=== PATIENT | female | born 1985 | race Caucasian/White ===

== ENCOUNTER → 2020-08-12 08:47 | Outpatient (CLI) | payer OTHER, SELFPAY ==
--- NOTE | ~2020-08-12 | MR_ITS ---
EXAMINATION: MR lumbar spine wo con DATE: 08/12/2020 09:21 INDICATION: Low back pain. Failed back surgical syndrome. TECHNIQUE: Magnetic resonance imaging (MRI) of the lumbar spine was performed without intravenous con trast. Sequences included sagittal T2-weighted FSE, sagittal STIR FSE, sagittal T1-weighted FSE, and axial T2-weighted FSE. COMPARISON: None FINDINGS: Bone alignment is normal in lumbar spine. Artifact from instrumentation from anterior fusio n procedure from the thoracic spine to L2 totally obscures those segments. The visualized portion of the lumbar spine demonstrates normal bone alignment and normal intervertebral disc heights. The dista l spinal cord is obscured. The following disc levels are specifically discussed: L2-L3: There is a central protrusion. There is no facet joint osteoarthritis. There is no neural fora carmella stenosis. There is no central canal stenosis. L3-L4: The disc is mildly bulging. There is no facet joint osteoarthritis. There is mild right neural foraminal stenosis. There is no central canal stenosis. L4-L5: The disc is mildly bulging. There is mild bilateral facet joint osteoarthritis. There is mild bilateral neural foraminal stenosis. There is no central canal stenosis. L5-S1: The disc is bulging, eccentric to the right. There is mild right and moderate left facet joint osteoarthritis. There is mild bilateral neural foraminal stenosis. There is mild central canal steno sis. IMPRESSION: 1. Mild lumbar spondylosis. 2. Anterior fusion procedure from the thoracic spine to L2 that totally obscures those segments. Reviewed, dictated and finalized at location A. [employer] IMPRESSION: 1. Mild lumbar spondylosis. 2. Anterior fusion procedure from the thoracic spine to L2 that totally obscure s those segments.
== END ==
PROVIDERS: PCP Family Medicine; Visit Provider Physician Assistant
DX: M96.1 Postlaminectomy syndrome, not elsewhere classified (principal); M47.817 Spondylosis without myelopathy or radiculopathy, lumbosacral region; M48.07 Spinal stenosis, lumbosacral region
CPT/HCPCS: 72148